=== PATIENT | male | born 1990 | race Caucasian/White ===

== ENCOUNTER 2017-05-14 06:01 | Emergency (ER) | payer MEDICAID, OTHER ==
[~2017-05-14] VITALS: Ht 160 cm; Wt 60.5 kg
[2017-05-14 06:05] VITALS: Ht 160 cm; Wt 60.5 kg
[2017-05-14 07:28] LABS: URINE BLOOD (Dip) POC 1+ (NEGATIVE)
[2017-05-14] MEDS ORDERED: HYDROCODONE/APAP (5/325) TAB PO ONE (07:30)
[2017-05-14] MEDS ORDERED: CEFTRIAXONE 250 MG INJ IM ONE (08:30)
[2017-05-14] MEDS ORDERED: AZITHROMYCIN 250 MG TAB PO ONE (08:30)
[2017-05-14] MEDS ORDERED: LIDOCAINE 2% (MDV) 20 ML INJ INJ ONE (09:00)
[2017-05-14] MEDS ORDERED: CIPR500T4 PO (09:23)
[2017-05-14] MEDS ORDERED: PHEN-537 PO (09:24)
--- NOTE | 2017-05-14 09:30 | ERD ---
ER Documentation Chief Complaint Date/Time DATE: 05/14/17 TIME: 09:26 Chief Complaint PENIS PAIN X1WEEK HPI This is a 26-year-old male that presents to the ER stating that he has penis pain for the last week. Patient states that he pulled his foreskin too far back and that because of that he has been experiencing pain. Patient also complaining of dysuria. He denies any hematuria. He denies any fevers or chills. He denies any flank pain. He denies any discharge from his penis. He is currently sexually active in a monogamous relationship with his fiance. ROS 12 point review of systems was done, all negative except per HPI. Medications Home Meds Active Scripts Phenazopyridine Hcl* (Pyridium*) 100 Mg Tab, 100 MG PO TID Y for URINARY PAIN, # 10 TAB Prov:KIARA GUAMAN 05/14/17 Ciprofloxacin Hcl* (Ciprofloxacin Hcl*) 500 Mg Tablet, 500 MG PO BID for 10 Days , TAB Prov:KIARA GUAMAN 05/14/17 Allergies Allergies: Coded Allergies: No Known Allergy (Unverified , 05/16/14) PMhx/Soc History of Surgery: No Anesthesia Reaction: No Hx Neurological Disorder: No Hx Respiratory Disorders: No Hx Cardiac Disorders: No Hx Psychiatric Problems: No Hx Miscellaneous Medical Probl: No Hx Alcohol Use: No Hx Substance Use: No Hx Tobacco Use: Yes Smoking Status: Current every day smoker Physical Exam Vitals Vital Signs Date Time Temp Pulse Resp B/P Pulse Ox O2 Delivery O2 Flow Rate FiO2 05/14/17 06:05 98.7 78 16 125/79 100 Physical Exam GENERAL: The patient is well developed and appropriate for usual state of health , in no apparent distress. HEENT: Atraumatic. CHEST: Clear to auscultation bilaterally. There are no rales, wheezes or rhonchi. HEART: Regular rate and rhythm. No murmurs, clicks, rubs or gallops. ABDOMEN: Soft, nontender and nondistended. Good bowel sounds. No rebound or guarding. No gross peritonitis. No gross organomegaly or masses. No Echavarria sign or McBurney point tenderness. : nobles discharge is seen from the tip of the penis. there are no lesions redness or swelling of the penis. no testicular swelling or pain. NEURO: Alert and oriented. SKIN: The skin is warm and dry. Results 24 hrs Laboratory Tests Test 05/14/17 07:31 Bedside Urine pH (LAB) 6.0 Bedside Urine Protein (LAB) 1+ Bedside Urine Glucose (UA) Negative Bedside Urine Ketones (LAB) Negative Bedside Urine Blood 1+ Bedside Urine Nitrite (LAB) Negative Bedside Urine Leukocyte Esterase (L 2+ Current Medications Medications (Trade) Dose Ordered Sig/Yumiko Route PRN Reason Start Time Stop Time Status Last Admin Dose Admin Acetaminophen/ Hydrocodone Bitart ([place] (5/325)) 1 tab ONCE ONCE PO 05/14/17 07:30 05/14/17 07:31 DC 05/14/17 07:30 Ceftriaxone Sodium (Rocephin) 250 mg ONCE ONCE IM 05/14/17 08:30 05/14/17 08:31 DC 05/14/17 08:48 Azithromycin (Zithromax) 1,000 mg ONCE ONCE PO 05/14/17 08:30 05/14/17 08:31 DC 05/14/17 08:48 Lidocaine (Xylocaine 2% (Mdv) 20 ml) 20 ml ONCE ONCE INJ 05/14/17 09:00 05/14/17 09:01 DC 05/14/17 08:50 Procedures/MDM This is a 26-year-old male presents to the ER with penis pain and dysuria. Patient was found to have a urinary tract infection to be treated with a ten- day course of Cipro. Suspicion for pyelonephritis is low he is afebrile, well- appearing and does not have any flank pain. I discussed the possibility of STI with the patient and treated him prophylactically. Urine will be sent to the lab for further testing. At this time did not observe laceration to the penis or any other abnormalities. Patient is to follow-up with his primary care doctor within 1-2 days or return to ER sooner if symptoms worsen. My medical decision making shared with the patient he understands and agrees with plan. Departure Diagnosis: Primary Impression: Dysuria Condition: Stable Patient Instructions: Dysuria Additional Instructions: Call your primary care doctor TOMORROW for an appointment during the next 1-2 days.See the doctor sooner or return here if your condition worsens before your appointment time. KIARA GUAMAN May 14, 2017 09:30
[2017-05-14 09:52] VITALS: BP 110/66; PULSE 66; RESP 16; TEMP 97.8
== END 2017-05-14 09:53 | disposition home or self-care (01) ==
LOC: FTE 06:01
DX: R30.0 Dysuria (principal); F17.210 Nicotine dependence, cigarettes, uncomplicated
CPT/HCPCS: 81003; 87591; 96372; J0696; Z7502; Z7610

== ENCOUNTER 2017-06-04 20:38 | Emergency (ER) | payer OTHER ==
[~2017-06-04] VITALS: Ht 160 cm; Wt 61.3 kg
[~2017-06-04 20:38] MED LIST: CIPR500T4 PO; PHEN-537 PO
[2017-06-04 20:42] VITALS: Ht 160 cm; Wt 61.3 kg
[2017-06-04] MEDS ORDERED: KETOROLAC 60 MG INJ IM STA (20:54)
[2017-06-04] MEDS ORDERED: ACETAMINOPHEN 325 MG TAB PO STA (20:54)
[2017-06-04] MEDS ORDERED: TRAM50TA2 PO (20:59)
[2017-06-04] MEDS ORDERED: ACET325T33 PO (21:00)
--- NOTE | 2017-06-04 21:11 | ERD ---
ER Documentation Chief Complaint Date/Time DATE: 06/04/17 TIME: 21:04 Chief Complaint worsening lower mid ap states he has a hernia HPI This is a 26-year-old male presenting to the emergency department complaining of acute on chronic left inguinal hernia pain for the past 3 years. Patient states that the pain started happening again this morning when he started lifting heavy weights. He rates the pain around moderate in severity. He denies any nausea, vomiting, diarrhea. He denies any constipation. Patient states that he has not taken any oral medications. However he has smoked marijuana which has not helped him. ROS All systems reviewed and are negative except as per history of present illness. Medications Home Meds Active Scripts Acetaminophen* (Tylenol*) 325 Mg Tablet, 2 TAB PO Q6 Y for PAIN AND OR ELEVATED TEMP, #20 TAB Prov:JESUS TONEY PA-C 06/04/17 Phenazopyridine Hcl* (Pyridium*) 100 Mg Tab, 100 MG PO TID Y for URINARY PAIN, # 10 TAB Prov:KIARA GUAMAN 05/14/17 Ciprofloxacin Hcl* (Ciprofloxacin Hcl*) 500 Mg Tablet, 500 MG PO BID for 10 Days , TAB Prov:KIARA GUAMAN 05/14/17 Allergies Allergies: Coded Allergies: No Known Allergy (Unverified , 06/04/17) PMhx/Soc Medical and Surgical Hx: pt denies Surgical Hx History of Surgery: No Anesthesia Reaction: No Hx Neurological Disorder: No Hx Respiratory Disorders: No Hx Cardiac Disorders: No Hx Psychiatric Problems: No Hx Miscellaneous Medical Probl: Yes (iguinal hernia) Hx Alcohol Use: No Hx Substance Use: Yes (marijuana) Hx Tobacco Use: No Smoking Status: Never smoker Physical Exam Vitals Vital Signs Date Time Temp Pulse Resp B/P Pulse Ox O2 Delivery O2 Flow Rate FiO2 06/04/17 20:42 98.0 104 18 147/85 97 Physical Exam GENERAL: well-developed/well-nourished, in no apparent distress, non-toxic appearing HENT: NC/AT, moist mucous membranes EYES: Conjunctiva normal NECK: Supple, no lymphadenopathy PULM: CTA bilaterally, no rales, rhonchi, or wheezing heard CV: Normal S1S2, RRR, good capillary refill GI: Soft, non-distended, tender to palpation left inguinal area Normal bowel sounds, no masses or organomegaly felt on exam No gross peritonitis, no bruits Negative Rovsing, negative Echavarria, negative McBurney's point, Negative CVAT BACK: No masses EXT: No clubbing, cyanosis, or edema NEURO: Alert and Orientated SKIN: Intact, normal turgor PSYCH: Normal mood and mentation Results 24 hrs Current Medications Medications (Trade) Dose Ordered Sig/Yumiko Route PRN Reason Start Time Stop Time Status Last Admin Dose Admin Ketorolac Tromethamine (Toradol) 60 mg ONCE STAT IM 06/04/17 20:54 06/04/17 20:55 DC Acetaminophen (Tylenol Tab) 650 mg ONCE STAT PO 06/04/17 20:54 06/04/17 20:55 DC Procedures/MDM This is a 26-year-old male presenting to the emergency department complaining of acute left inguinal pain that started this morning, patient states that he has had inguinal hernia for the past 3 years. On examination he was tender in that region however he was laughing and he did smoke marijuana for the pain prior to coming to the emergency department. I doubt patient has incarcerated or jugular hernia. Doubt that he has appendicitis, diverticulitis, obstruction. Patient has stable vital signs and appears well to be discharged home with Tylenol. In the ED he was given Tylenol and Toradol with some improvement in pain. Discussed return to the ER for any worsening sinus nose. Patient understands and agrees with plan Departure Diagnosis: Primary Impression: Hernia Condition: Stable Patient Instructions: Hernia (Inguinal, Ventral, Umbilical) Additional Instructions: FOLLOW UP WITH YOUR PRIMARY CARE PHYSICIAN TOMORROW.Return to this facility if you are not improving as expected. You have been given a medicine which may cause drowsiness.DO NOT DRIVE OR OPERATE DANGEROUS MACHINERY while taking this medicine! Return to this facility if you are not improving as expected. JESUS TONEY PA-C Jun 04, 2017 21:11
== END 2017-06-04 21:42 | disposition home or self-care (01) ==
LOC: FTE 20:38
DX: K40.90 Unilateral inguinal hernia, without obstruction or gangrene, not specified as recurrent (principal)
CPT/HCPCS: J1885; Z7610; 99283